=== PATIENT | male | born 1960 | race Caucasian/White ===

== ENCOUNTER 2021-05-09 19:36 | Emergency (ER) | payer OTHER ==
[2021-05-09 20:20] LABS: HEMOGLOBIN 15.2 gm/dl (14.0-17.5); WHITE BLOOD COUNT 9.3 K/UL (4.5-11.0)
[2021-05-09 20:46] LABS: BUN/CREATININE RATIO 12 (0-10)
== END 2021-05-10 01:10 | disposition home or self-care (01) ==
LOC: ER1 19:36
PROVIDERS: Physician Assistant
DX: U07.1 COVID-19 (principal); F17.220 Nicotine dependence, chewing tobacco, uncomplicated
CPT/HCPCS: 0240U; 71045; 80053; 82550; 82553; 83605; 83874; 83880; 84484; 85025; 85379; 87040; 93005; 94640; 94664; 96374; 99285; J1100; Q9967